=== PATIENT | male | born 1940 | race Caucasian/White ===

== ENCOUNTER 2022-03-22 20:02 | Inpatient (IN) | payer MEDICARE, OTHER ==
[~2022-03-22] VITALS: Ht 165.1 cm; Wt 72.6 kg
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
--- NOTE | 2022-03-22 20:25 | NUR ---
Pinky at bedside for crisis evaluation.
--- NOTE | 2022-03-22 20:30 | NUR ---
Patient is medically cleared for MHU admission.
--- NOTE | 2022-03-22 20:30 | NUR ---
Sitter Divia at bedside.
--- NOTE | 2022-03-22 20:45 | NUR ---
Called U for bed assignment Room 141B.
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
[2022-03-22] MEDS ORDERED: PRAV40TA3 PO (22:09)
[2022-03-22] MEDS ORDERED: TAMS-3 PO (22:09)
[2022-03-22] MEDS ORDERED: DIVA-78 PO (22:09)
[2022-03-22] MEDS ORDERED: CYAN100T44 PO (22:09)
[2022-03-22] MEDS ORDERED: METF-440 PO (22:09)
[2022-03-22] MEDS ORDERED: OLAN5TAB70 PO (22:09)
[2022-03-22] MEDS ORDERED: MELA3TAB41 PO (22:09)
[2022-03-22] MEDS ORDERED: AMLO10TA59 PO (22:09)
--- NOTE | 2022-03-22 22:15 | NUR ---
Report given to RAHEEM Iglesias.
--- NOTE | 2022-03-22 22:45 | NUR ---
Transported from ED to MHU Room 141B via wheelchair, without any incident, accompanied by 2 staff members.
[2022-03-22 23:15] VITALS: BP 136/92
[2022-03-22] MEDS ORDERED: BLOOD SUGAR DIAGNOSTIC 1 EACH STRIP VI ONE (23:15)
[2022-03-22] MEDS ORDERED: LORAZEPAM 1 MG TABLET PO PRN (23:15)
[2022-03-22] MEDS ORDERED: MAG HYDROX/AL HYDROX/SIMETH 30 ML LIQUID UDC PO PRN (23:15)
[2022-03-22] MEDS: TEMAZEPAM 7.5 MG CAPSULE PO PRN (23:15)
[2022-03-22] MEDS ORDERED: ACETAMINOPHEN 325 MG TABLET PO PRN (23:15)
[2022-03-22] MEDS ORDERED: MAGNESIUM HYDROXIDE 30 ML LIQUID UDC PO PRN (23:15)
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
[2022-03-23 07:30] VITALS: BP 119/71
[2022-03-23 07:31] LABS: ALANINE AMINOTRANSFERASE 35 U/L (16-63); ALKALINE PHOSPHATASE 102 U/L (50-136); ASPARTATE AMINOTRANSFERASE 44 U/L (15-37); BILIRUBIN,TOTAL 0.9 mg/dL (0.2-1.0); CARBON DIOXIDE 31 mmol/L (21-32); CHLORIDE 105 mmol/L (98-107); CREATININE 1.6 mg/dL (0.6-1.3); GLUCOSE 118 mg/dL (74-106); POTASSIUM 3.8 mmol/L (3.5-5.1); TOTAL PROTEIN, SERUM 7.3 g/dL (6.4-8.2); UREA NITROGEN, BLOOD 24 mg/dL (7-18)
[2022-03-23] MEDS ORDERED: HOME MED MISCELLANEOUS XX SCH (11:15)
[2022-03-23] MEDS: OLANZAPINE 2.5 MG TABLET PO SCH ×2 (12:40→16:56)
[2022-03-23] MEDS: DIVALPROEX 500 MG TABLET.DR PO SCH ×2 (12:42→20:21)
[2022-03-23 16:00] VITALS: BP 92/58
[2022-03-23] MEDS: METFORMIN HCL 500 MG TABLET PO SCH (18:23)
--- NOTE | 2022-03-23 18:35 | NUR ---
GPS: RECEIVED PT ON BED. ASLEEP THE WHOLE MORNING. SEEN BY PSYCHIATRIST TODAY, FLAT AFFECT, WITHDRAWN AND DEPRESSED, STAYING IN THE ROOM, ENCOURAGED TO ATTEND WITH GROUP THERAPY WITH MINIMUM PARTICIPATION NOTED. COMPLIANT WITH CARE AND MEDS WITH NO AGITATION NOTED. PT ALERT AND ORIENTED X 1-2. PT AMBULATORY WITH MINIMUM ASSIST FOR UNSTEADINESS. SEEN BY PHYSICAL THERAPY AND PNEUMATIC SYSTEM CONVEYOR OPERATOR TODAY.
[2022-03-23 20:06] VITALS: BP 101/70
[2022-03-23] MEDS: ATORVASTATIN 10 MG TABLET PO SCH (20:22)
[2022-03-23] MEDS: TAMSULOSIN HCL 0.4 MG CAP.SR.24H PO SCH (20:22)
[2022-03-23] MEDS ORDERED: IV NS 1000 ML 1,000 ML IV ONE (21:00)
--- NOTE | 2022-03-24 01:50 | NUR ---
Received patient in bed sleeping. This casualty underwriter got patient up to Jacki chair. Inserted # 22 gauge in left hand. IVF x 1 bag infusing without difficulty. Monitoring patients Intake and output . Safety Stratiges are in place and no behavioral issues noted at this time.
--- NOTE | 2022-03-24 06:08 | NUR ---
Patient tolerated 500 ml of IVF, the became slightly congested. The patient voided post IV and specimen sent to the lab. Review Appraiser assisted patient back to be per the patients request. Urine output 300ml post IVF and dark in color. Safety Stratiges are in place and the total sleep hours are 8.00 . No behavior issues noted but the patient is forgetful and requires assistance with all ADLS, toileting and ambulation . Continuing to monitor frequently and reoriented as needed.
[2022-03-24 06:18] LABS: *BILIRUBIN,URIN NEGATIVE (NEGATIVE); *COLOR,URINE YELLOW (YELLOW); *KETONES,URINE TRACE (NEGATIVE); *UROBILINOGEN,URINE 0.2 E.U./dl (NORMAL); LEUKOCYTE ESTERASE ,URINE NEGATIVE (NEGATIVE); NITRITE, URINE NEGATIVE (NEGATIVE); UGLUCOSE TRACE (NEGATIVE)
[2022-03-24 06:39] LABS: *BLOOD, URINE TRACE (NEGATIVE); *CLARITY,URINE CLEAR (CLEAR); *CREATININE,URINE 200.8 mg/dL (30-125); BACTERIA,URINE NONE SEEN /HPF (NONE SEEN); SQUAMOUS EPITHELIAL CELL,UR FEW /HPF (NONE SEEN); WBC,URINE 0-3 /HPF (0-3)
[2022-03-24 07:00] VITALS: BP 140/93
[2022-03-24] MEDS: DIVALPROEX 500 MG TABLET.DR PO SCH ×2 (09:01→20:20)
[2022-03-24] MEDS: OLANZAPINE 2.5 MG TABLET PO SCH ×3 (09:02→17:26)
[2022-03-24] MEDS: METFORMIN HCL 500 MG TABLET PO SCH ×2 (09:02→17:26)
[2022-03-24] MEDS: AMLODIPINE 10 MG TABLET PO SCH (09:02)
[2022-03-24] MEDS: CYANOCOBALAMIN 100 MCG TABLET PO SCH (09:02)
--- NOTE | 2022-03-24 11:22 | NUR ---
NELDA Family Contact: Pt's , Tony [phone] contacted this SW and discussed pt's treatment and discharge plan. Tony stated she herself is in a nusring home and wants to ensure that her is placed in a nursing facility upon discharge. Tony stated the pt lives with his sister, Camila ([phone]) and she cannot take care of him. Tony stated pt needs a facility moving forward. Tony was agreeable to NELDA stating that this senior copywriter can speak to the pt's psychiatrist and refer the pt to [facility] [place]) facilities that are appropriate for the pt's needs for continuation of care. Tony is aware and agreeable. Tony stated to please keep her informed on all updates. Per Tony, pt does not have a DPOA or conservator.
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
--- NOTE | 2022-03-24 14:04 | NUR ---
NELDA Initial Discharge Note: Pt currently resides with his sister, Sonal ([phone]) at home located at [address] [place] [address]. Per pt's , Tony ([phone]), Tony stated she would like her to discharge to a prison and not to return home with his sister. Tony stated she is agreeable to this SW helping to find a safe placement for the pt in a prison upon discharge. NELDA will continue to work with pt, family and MD to ensure a safe and proper discharge plan.
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
[2022-03-24 16:00] VITALS: BP 136/88
--- NOTE | 2022-03-24 19:04 | NUR ---
GPS: PT STAYED IN THE ROOM THE WHOLE DAY, WITHDRAWN AND REFUSED PARTICIPATING WITH GROUP THERAPY. COMPLIANT WITH MEDS. PT ABLE TO AMBULATE FOR TOILETING. DENIES ANY SUICIDAL IDEATION. PT DENIES PAIN OR DISCOMFORT. NUT GRINDER CAME TO CUT TOENAILS. NOTED WITH RIGHT ARM HEPLOCK NOTED COVERED WITH DRESSING.
[2022-03-24 20:00] VITALS: BP 135/81
[2022-03-24] MEDS: ATORVASTATIN 10 MG TABLET PO SCH (20:20)
[2022-03-24] MEDS: TAMSULOSIN HCL 0.4 MG CAP.SR.24H PO SCH (20:20)
--- NOTE | 2022-03-25 06:02 | NUR ---
Received patient in bed at the start of the shift. This typewriter ribbon winder got patient up, gave him a shower and snack. Patient is easy to direct and shows no resistance. Assist needed with all ADLS. Safety Stratiges in place. The patient remains oriented to name and being in the hospital. Verbalizes wanting to go home.
[2022-03-25 07:56] VITALS: BP 123/69
[2022-03-25] MEDS: OLANZAPINE 2.5 MG TABLET PO SCH ×3 (09:06→16:34)
[2022-03-25] MEDS: CYANOCOBALAMIN 100 MCG TABLET PO SCH (09:06)
[2022-03-25] MEDS: DIVALPROEX 500 MG TABLET.DR PO SCH ×2 (09:06→20:17)
[2022-03-25] MEDS: AMLODIPINE 10 MG TABLET PO SCH (09:06)
[2022-03-25] MEDS: METFORMIN HCL 500 MG TABLET PO SCH ×2 (09:06→18:03)
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
[2022-03-25 16:28] VITALS: BP 96/58
--- NOTE | 2022-03-25 17:20 | NUR ---
GPS: PT STAYED N THE ROOM THE WHOLE TIME. ABLE TO AMBULATE GOING TO THE BATHROOM. COMPLIANT WITH CARE AND MEDICATIONS. DENIES ANY PAIN OR DISCOMFORT. RECEIVED FAMILY CALLS. PT ENCOURAGED MORE TO ENGAGE WITH GROUP THERAPY BUT REFUSED. WILL KEEP ON ENCOURAGING PT NEXT TIME. NO AGITATION NOTED. DENIES SI/HI NOTED.
[2022-03-25] MEDS: TAMSULOSIN HCL 0.4 MG CAP.SR.24H PO SCH (20:17)
[2022-03-25] MEDS: ATORVASTATIN 10 MG TABLET PO SCH (20:17)
[2022-03-25 20:52] VITALS: BP 103/65
[2022-03-26 07:54] VITALS: BP 114/78
[2022-03-26] MEDS: OLANZAPINE 2.5 MG TABLET PO SCH ×3 (08:26→16:12)
[2022-03-26] MEDS: DIVALPROEX 500 MG TABLET.DR PO SCH ×2 (08:26→21:15)
[2022-03-26] MEDS: CYANOCOBALAMIN 100 MCG TABLET PO SCH (08:26)
[2022-03-26] MEDS: METFORMIN HCL 500 MG TABLET PO SCH ×2 (08:26→17:03)
[2022-03-26] MEDS: AMLODIPINE 10 MG TABLET PO SCH (08:28)
[2022-03-26 16:07] VITALS: BP 98/56
--- NOTE | 2022-03-26 18:00 | NUR ---
GPS: Nursing Notes: Thought Disorder: Patient is awake and responding to his name, ambulatory with fww, needs a lot of prompting to participate in therapeutic groups, isolative and withdrawn in his room, no interactions with peers, flat affect, low energy level, unable to formulate a viable plan for self care, unkempt appearance, continue to monitor for safety, continue with treatment plan.
[2022-03-26] MEDS: TAMSULOSIN HCL 0.4 MG CAP.SR.24H PO SCH (21:15)
[2022-03-26] MEDS: ATORVASTATIN 10 MG TABLET PO SCH (21:15)
[2022-03-26] MEDS: TEMAZEPAM 7.5 MG CAPSULE PO PRN (21:15)
[2022-03-27 07:30] VITALS: BP 107/63
[2022-03-27 07:32] LABS: HEMATOCRIT 39.8 % (36.7-47.1); MEAN CORPUSCULAR HEMOGLOBIN 28.1 uug (23.8-33.4); MEAN CORPUSCULAR VOLUME 84.5 fL (73.0-96.2); PLATELET COUNT (AUTO) 177 K/uL (152-348)
[2022-03-27 07:59] LABS: CARBON DIOXIDE 30 mmol/L (21-32); CHLORIDE 107 mmol/L (98-107); CREATININE 1.4 mg/dL (0.6-1.3); GLUCOSE 90 mg/dL (74-106); UREA NITROGEN, BLOOD 29 mg/dL (7-18)
[2022-03-27] MEDS: METFORMIN HCL 500 MG TABLET PO SCH ×2 (08:35→17:02)
[2022-03-27] MEDS: DIVALPROEX 500 MG TABLET.DR PO SCH ×2 (08:36→20:56)
[2022-03-27] MEDS: AMLODIPINE 10 MG TABLET PO SCH (08:36)
[2022-03-27] MEDS: OLANZAPINE 2.5 MG TABLET PO SCH ×3 (08:36→16:43)
[2022-03-27] MEDS: CYANOCOBALAMIN 100 MCG TABLET PO SCH (08:40)
--- NOTE | 2022-03-27 14:51 | NUR ---
GPS: Nursing Notes: Thought Disorder: Patient is awake and responding to his name, isolative and withdrawn in his room, needs a lot of prompting to participate in therapeutic groups, interactive when engage with staff, redirected and reoriented during shift, unable to formulate a viable plan for self care, continue to monitor for safety, A/Ox2, forgetful at times, constantly reminded to use his fww, but he forgets to use his fww, continue with treatment plan.
[2022-03-27 15:20] VITALS: BP 97/62
[2022-03-27 20:19] VITALS: BP 111/64
[2022-03-27] MEDS: TAMSULOSIN HCL 0.4 MG CAP.SR.24H PO SCH (20:56)
[2022-03-27] MEDS: ATORVASTATIN 10 MG TABLET PO SCH (20:56)
[2022-03-27] MEDS: TEMAZEPAM 7.5 MG CAPSULE PO PRN (20:56)
[2022-03-28 08:02] VITALS: BP 104/62
[2022-03-28] MEDS: METFORMIN HCL 500 MG TABLET PO SCH ×2 (08:48→17:05)
[2022-03-28] MEDS: AMLODIPINE 10 MG TABLET PO SCH (08:48)
[2022-03-28] MEDS: DIVALPROEX 500 MG TABLET.DR PO SCH ×2 (08:48→20:38)
[2022-03-28] MEDS: OLANZAPINE 2.5 MG TABLET PO SCH ×3 (08:49→17:03)
[2022-03-28] MEDS: CYANOCOBALAMIN 100 MCG TABLET PO SCH (08:49)
--- NOTE | 2022-03-28 13:35 | NUR ---
GPS: Nursing Notes: Thought Disorder: Patient is awake and responding to his name, isolative and withdrawn in his room, no interactions with peers or staff, needs prompting to participate in therapeutic groups, A/Ox2, low energy level, ambulatory with fww, unable to formulate a viable plan for self care, continue to monitor for safety, continue with treatment plan.
[2022-03-28 15:59] VITALS: BP 118/57
[2022-03-28] MEDS: ATORVASTATIN 10 MG TABLET PO SCH (20:38)
[2022-03-28] MEDS: TAMSULOSIN HCL 0.4 MG CAP.SR.24H PO SCH (20:38)
[2022-03-28 22:04] VITALS: BP 118/64
--- NOTE | 2022-03-29 05:43 | NUR ---
Received patient in the room. Disheveled, with food all over the floor and wet pants. The patient was confused. This securities underwriter assisted patient to the bathroom. Gait unsteady. VS have been stable and the patient is medication compliant, calm and withdrawn. The patient seems depressed and has minimal interaction with staff of peers. No behavioral issues noted. Safety Stratiges are in place. Sleep hours are 8.15.
[2022-03-29 07:30] VITALS: BP 114/66
[2022-03-29] MEDS: OLANZAPINE 2.5 MG TABLET PO SCH ×3 (08:36→17:02)
[2022-03-29] MEDS: DIVALPROEX 500 MG TABLET.DR PO SCH ×2 (08:37→21:22)
[2022-03-29] MEDS: AMLODIPINE 10 MG TABLET PO SCH (08:37)
[2022-03-29] MEDS: CYANOCOBALAMIN 100 MCG TABLET PO SCH (08:37)
[2022-03-29] MEDS: METFORMIN HCL 500 MG TABLET PO SCH ×2 (08:37→17:02)
--- NOTE | 2022-03-29 11:50 | NUR ---
GPS: Nursing Notes: Thought Disorder: Patient is awake and responding to his name, disorganized, disoriented, isolative and withdrawn in his room, no interactions with peers, continue to monitor for safety, needs prompting to participate in therapeutic groups, ambulatory with fww, forgetful, unable to formulate a viable plan for self care, continue with treatment plan.
[2022-03-29 15:19] VITALS: BP 111/59
[2022-03-29 20:09] VITALS: BP 116/64
--- NOTE | 2022-03-29 20:30 | NUR ---
RECEIVED PATIENT IN HIS ROOM IN BED. HE IS NOTED AWAKE A/O X 1 TO 2. HE IS NOTED FORGETFUL. HE IS A POOR HISTORIAN. HE IS NOTED LESS WITHDRAWN LESS ISOLATIVE HE WAS ABLE TO HAVE HIS SNACKS AT THE DAYROOM. HIS MOOD IS LOW, HIS AFFECT IS BLUNTED. HE REQUIRES SOME ASSISTANCE WITH ADLs. HE IS REASSURED FOR HIS SAFETY. SAFETY AND FALL PRECAUTIONS ARE IN PLACE. PATIENT'S V/S ARE STABLE, HE IS IN NO DISTRESS. HE WAS GIVEN PO FLUIDS AND SNACKS. WILL CONTINUE TO MONITOR.
[2022-03-29] MEDS: TAMSULOSIN HCL 0.4 MG CAP.SR.24H PO SCH (21:22)
[2022-03-29] MEDS: ATORVASTATIN 10 MG TABLET PO SCH (21:22)
[2022-03-30 07:30] VITALS: BP 143/76
[2022-03-30] MEDS: METFORMIN HCL 500 MG TABLET PO SCH ×2 (08:48→17:52)
[2022-03-30] MEDS: AMLODIPINE 10 MG TABLET PO SCH (08:48)
[2022-03-30] MEDS: OLANZAPINE 2.5 MG TABLET PO SCH ×3 (08:49→17:53)
[2022-03-30] MEDS: DIVALPROEX 500 MG TABLET.DR PO SCH ×2 (08:49→20:30)
[2022-03-30] MEDS: CYANOCOBALAMIN 100 MCG TABLET PO SCH (08:50)
[2022-03-30 16:00] VITALS: BP 133/76
--- NOTE | 2022-03-30 18:44 | NUR ---
GPS: RECEIVED PT ON BED TODAY. COMPLIANT WITH CARE AND MEDS. PT SEEN AMBULATING WITH WALKER ALONG THE HALLWAY AND PARTICIPATED WITH GROUP THERAPY FOR A WHILE. PT STILL STAYS IN THE ROOM, SLEEPING, LIKE LOW ENERGY, BUT EASILY GET AROUSED WHEN CALLED BY NAME. ALERT/ ORIENTED X2. NO AGITATION NOTED AT THIS TIME.
[2022-03-30 20:11] VITALS: BP 112/83
[2022-03-30] MEDS: ATORVASTATIN 10 MG TABLET PO SCH (20:30)
[2022-03-30] MEDS: TAMSULOSIN HCL 0.4 MG CAP.SR.24H PO SCH (20:31)
--- NOTE | 2022-03-30 21:14 | NUR ---
RECEIVED PATIENT WALKING IN THE HALLWAY WITH THE AID OF A FRONT WHEEL WALKER. HE IS NOTED A/O X 1 TO 2. CALM AND PLEASANT UPON APPROACHED. HE IS A POOR HISTORIAN, BUT HE IS NOTED LESS WITHDRAWN LESS ISOLATIVE HE WAS ABLE TO PARTICIPATE IN HIS TIME FOR SNACKS AT THE DAYROOM. HIS MOOD IS LOW, HIS AFFECT IS BLUNTED. HE REQUIRES SOME ASSISTANCE WITH ADLs. AND BATHROOM. HE IS REASSURED FOR HIS SAFETY. SAFETY AND FALL PRECAUTIONS ARE IN PLACE. BED ALARM ON WITH FREQUENT HEAD CHECKS. PATIENT'S V/S ARE STABLE, HE IS IN NO DISTRESS. HE WAS GIVEN PO FLUIDS AND SNACKS. WILL CONTINUE TO MONITOR.
[2022-03-31 07:30] VITALS: BP 114/67
--- NOTE | 2022-03-31 09:00 | NUR ---
Calm and compliant with care and taking of medications. Ambulatory with FWW
[2022-03-31] MEDS: AMLODIPINE 10 MG TABLET PO SCH (09:23)
[2022-03-31] MEDS: CYANOCOBALAMIN 100 MCG TABLET PO SCH (09:23)
[2022-03-31] MEDS: DIVALPROEX 500 MG TABLET.DR PO SCH ×2 (09:23→20:53)
[2022-03-31] MEDS: OLANZAPINE 2.5 MG TABLET PO SCH ×3 (09:23→16:39)
[2022-03-31] MEDS: METFORMIN HCL 500 MG TABLET PO SCH ×2 (09:24→17:28)
[2022-03-31 17:15] VITALS: BP 108/65
--- NOTE | 2022-03-31 17:24 | NUR ---
Resting most of the afternoon between care. Responds to interaction. Complaint with taking of medication
--- NOTE | 2022-03-31 20:30 | NUR ---
RECEIVED PATIENT IN HIS ROOM IN BED. HE IS NOTED AWAKE A/O X1 AND 2. CALM AND PLEASANT UPON APPROACHED. HE IS FORGETFUL AT TIMES. PATIENT IS LESS ISOLATIVE AND LESS WITHDRAWN. HE IS ABLE TO MAKE EYE CONTACT WITH THIS FOOT WORKER AND HAVE SOME MEANINGFUL CONVERSATIONS. HE IS REASSURED FOR HIS SAFETY. SAFETY AND FALL PRECAUTION ARE IN PLACE. HIS V/S ARE STABLE. PATIENT IN NO DISTRESS. HE WAS GIVEN PO FLUIDS AND SNACKS. HE ALSO SHOWERED. WILL CONTINUE TO MONITOR,
[2022-03-31] MEDS: ATORVASTATIN 10 MG TABLET PO SCH (20:53)
[2022-03-31] MEDS: TAMSULOSIN HCL 0.4 MG CAP.SR.24H PO SCH (20:53)
[2022-03-31 21:07] VITALS: BP 107/63
[2022-04-01 07:30] VITALS: BP 115/82
[2022-04-01] MEDS: OLANZAPINE 2.5 MG TABLET PO SCH ×3 (08:41→17:45)
[2022-04-01] MEDS: DIVALPROEX 500 MG TABLET.DR PO SCH ×2 (08:41→20:27)
[2022-04-01] MEDS: AMLODIPINE 10 MG TABLET PO SCH (08:42)
[2022-04-01] MEDS: METFORMIN HCL 500 MG TABLET PO SCH ×2 (08:42→17:45)
[2022-04-01] MEDS: CYANOCOBALAMIN 100 MCG TABLET PO SCH (09:03)
--- NOTE | 2022-04-01 15:35 | NUR ---
SNF Referral: SW faxed patient's referral packet including: History and Physical, Consultation, Progress Notes, Medication List and Labs to the following facilities for review and possible assisted placement: [address] [address] ([phone]) F: [phone]).
[2022-04-01 16:00] VITALS: BP 118/79
--- NOTE | 2022-04-01 16:07 | NUR ---
SW Discharge Update: Lucía from [facility] [address] [facility] [address] ([phone]) F: [phone] contacted this SW and stated that pt is accepted to their facility upon discharge.
[2022-04-01 20:26] VITALS: BP 113/59
[2022-04-01] MEDS: ATORVASTATIN 10 MG TABLET PO SCH (20:27)
[2022-04-01] MEDS: TAMSULOSIN HCL 0.4 MG CAP.SR.24H PO SCH (20:27)
[2022-04-01] MEDS: TEMAZEPAM 7.5 MG CAPSULE PO PRN (23:12)
[2022-04-02 07:30] VITALS: BP 127/78
[2022-04-02] MEDS: AMLODIPINE 10 MG TABLET PO SCH (08:36)
[2022-04-02] MEDS: DIVALPROEX 500 MG TABLET.DR PO SCH ×2 (08:36→20:31)
[2022-04-02] MEDS: METFORMIN HCL 500 MG TABLET PO SCH ×2 (08:36→17:58)
[2022-04-02] MEDS: CYANOCOBALAMIN 100 MCG TABLET PO SCH (08:47)
[2022-04-02] MEDS: OLANZAPINE 2.5 MG TABLET PO SCH ×3 (08:47→17:58)
--- NOTE | 2022-04-02 11:10 | NUR ---
GPS: PT RECEIVED AMBULATING WITH THE WALKER, COMPLIANT WITH CARE AND MEDS. PT ABLE TO MAKE NEEDS KNOWN SOMETIMES. PARTICIPATED MORE WITH GROUP THERAPY AND NOW HAVING A BETTER DAYS, MORE EPISODE OF GOING OUT FROM HIS ROOM. WITH A BIT OF CONFUSION, PT EASILY REDIRECTABLE
[2022-04-02 16:00] VITALS: BP 111/68
[2022-04-02 20:00] VITALS: BP 107/66
[2022-04-02] MEDS: ATORVASTATIN 10 MG TABLET PO SCH (20:32)
[2022-04-02] MEDS: TAMSULOSIN HCL 0.4 MG CAP.SR.24H PO SCH (20:32)
[2022-04-03 08:08] VITALS: BP 100/56
[2022-04-03] MEDS: METFORMIN HCL 500 MG TABLET PO SCH ×2 (08:52→17:42)
[2022-04-03] MEDS: DIVALPROEX 500 MG TABLET.DR PO SCH ×2 (08:52→20:35)
[2022-04-03] MEDS: AMLODIPINE 10 MG TABLET PO SCH (08:52)
[2022-04-03] MEDS: CYANOCOBALAMIN 100 MCG TABLET PO SCH (08:52)
[2022-04-03] MEDS: OLANZAPINE 2.5 MG TABLET PO SCH ×3 (08:52→17:42)
--- NOTE | 2022-04-03 15:52 | NUR ---
GPS:Nursing note: Pt is alert, cooperative with care. Pt is ambulatory with front wheel walker but isolates himself in room and sleeps most of the day. Will continue to monitor.
[2022-04-03 16:13] VITALS: BP 109/50
[2022-04-03 19:56] VITALS: BP 106/54
--- NOTE | 2022-04-03 20:30 | NUR ---
RECEIVED PATIENT IN HIS ROOM IN BED. HE IS NOTED AWAKE A/O X1 AND 2. PATIENT IS ISOLATIVE AND WITHDRAWN. HE IS ABLE TO MAKE EYE CONTACT WITH THIS CNC OPERATOR MACHINIST AND HAVE SOME MEANINGFUL CONVERSATIONS. HE IS REASSURED FOR HIS SAFETY. SAFETY AND FALL PRECAUTION ARE IN PLACE. HIS V/S ARE STABLE. PATIENT IN NO DISTRESS. HE WAS GIVEN PO FLUIDS AND SNACKS. HE ALSO SHOWERED. WILL CONTINUE TO MONITOR,
[2022-04-03] MEDS: TAMSULOSIN HCL 0.4 MG CAP.SR.24H PO SCH (20:35)
[2022-04-03] MEDS: ATORVASTATIN 10 MG TABLET PO SCH (20:35)
[2022-04-04] MEDS: OLANZAPINE 2.5 MG TABLET PO SCH ×2 (08:34→20:17)
[2022-04-04] MEDS: METFORMIN HCL 500 MG TABLET PO SCH ×2 (08:34→17:11)
[2022-04-04] MEDS: DIVALPROEX 500 MG TABLET.DR PO SCH ×2 (08:35→20:17)
[2022-04-04] MEDS: AMLODIPINE 10 MG TABLET PO SCH (08:35)
[2022-04-04] MEDS: CYANOCOBALAMIN 100 MCG TABLET PO SCH (08:35)
[2022-04-04 10:09] VITALS: BP 116/64
--- NOTE | 2022-04-04 14:37 | NUR ---
GPS: Nursing Notes: Thought Disorder: Patient is awake and responding to his name, cooperative with nursing care, compliant with his medications, need minimal prompting to participate in therapeutic groups, A/Ox2, ambulatory with fww, unable to formulate a viable plan for self care, low energy level, interactive during group therapy, needs assistance with ADL's, denies SI/HI, continue to monitor for safety, continue with treatment plan.
[2022-04-04 16:18] VITALS: BP 105/59
[2022-04-04 19:57] VITALS: BP 119/73
[2022-04-04] MEDS: TAMSULOSIN HCL 0.4 MG CAP.SR.24H PO SCH (20:16)
[2022-04-04] MEDS: ATORVASTATIN 10 MG TABLET PO SCH (20:17)
--- NOTE | 2022-04-05 03:57 | NUR ---
GPS: Received patient in bed, responsive to name and touch. Patient isolative in his room, sleeping most of the time. Remains compliant with medications. Offered snacks and fluid but refused. Patient forgetful, however pleasant and no behavioral problem noted.
[2022-04-05 06:50] LABS: HEMATOCRIT 40.6 % (36.7-47.1); MEAN CORPUSCULAR HEMOGLOBIN 28.7 uug (23.8-33.4); PLATELET COUNT (AUTO) 140 K/uL (152-348)
[2022-04-05 07:24] LABS: CARBON DIOXIDE 34 mmol/L (21-32); CHLORIDE 105 mmol/L (98-107); CREATININE 1.7 mg/dL (0.6-1.3); GLUCOSE 84 mg/dL (74-106); MAGNESIUM 1.6 mg/dL (1.8-2.4); PHOSPHOROUS 3.2 mg/dL (2.5-4.9); POTASSIUM 4.1 mmol/L (3.5-5.1); UREA NITROGEN, BLOOD 40 mg/dL (7-18)
[2022-04-05 07:30] VITALS: BP 123/61
[2022-04-05] MEDS: METFORMIN HCL 500 MG TABLET PO SCH ×2 (08:33→17:12)
[2022-04-05] MEDS: DIVALPROEX 500 MG TABLET.DR PO SCH ×2 (08:33→20:13)
[2022-04-05] MEDS: CYANOCOBALAMIN 100 MCG TABLET PO SCH (08:33)
[2022-04-05] MEDS: OLANZAPINE 2.5 MG TABLET PO SCH (08:33)
[2022-04-05] MEDS: AMLODIPINE 10 MG TABLET PO SCH (08:34)
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
[2022-04-05] MEDS ORDERED: MAGNESIUM OXIDE 400 MG TABLET PO ONE (10:00)
--- NOTE | 2022-04-05 12:14 | NUR ---
GPS: Nursing Notes: Thought Disorder: Patient is awake and responding to his name, cooperative with nursing care, isolative and withdrawn at times, but following staff directions, need minimal prompting to participate in therapeutic groups, forgetful, A/Ox2, ambulatory with fww, continue to monitor for safety, unable to formulate a viable plan for self care, continue with treatment plan.
[2022-04-05 15:27] VITALS: BP 117/68
[2022-04-05 20:00] VITALS: BP 126/64
[2022-04-05] MEDS: ATORVASTATIN 10 MG TABLET PO SCH (20:13)
[2022-04-05] MEDS: TAMSULOSIN HCL 0.4 MG CAP.SR.24H PO SCH (20:13)
[2022-04-06 07:30] VITALS: BP 104/64
[2022-04-06] MEDS: CYANOCOBALAMIN 100 MCG TABLET PO SCH (08:17)
[2022-04-06] MEDS: DIVALPROEX 500 MG TABLET.DR PO SCH ×2 (08:17→20:24)
[2022-04-06] MEDS: METFORMIN HCL 500 MG TABLET PO SCH ×2 (08:17→18:24)
[2022-04-06] MEDS: AMLODIPINE 10 MG TABLET PO SCH (08:18)
[2022-04-06 16:00] VITALS: BP 106/62
--- NOTE | 2022-04-06 16:53 | NUR ---
Received patient awake in the activity room. Pt. quiet, withdrawn, cooperative, depressed, withdrawn, compliant with medications. Patient is encourage to vent feelings and emotions. Ambulates independently. Fall and safety precautions implemented.
[2022-04-06 20:19] VITALS: BP 111/60
[2022-04-06] MEDS: ATORVASTATIN 10 MG TABLET PO SCH (20:24)
[2022-04-06] MEDS: TAMSULOSIN HCL 0.4 MG CAP.SR.24H PO SCH (20:25)
[2022-04-06] MEDS ORDERED: OLANZAPINE 2.5 MG TABLET PO SCH (21:00)
[2022-04-07 06:49] LABS: HEMATOCRIT 41.7 % (36.7-47.1); MEAN CORPUSCULAR HEMOGLOBIN 28.2 uug (23.8-33.4); MEAN CORPUSCULAR VOLUME 85.5 fL (73.0-96.2); PLATELET COUNT (AUTO) 132 K/uL (152-348)
[2022-04-07 07:05] LABS: ALANINE AMINOTRANSFERASE 16 U/L (16-63); ALKALINE PHOSPHATASE 67 U/L (50-136); ASPARTATE AMINOTRANSFERASE 12 U/L (15-37); BILIRUBIN,TOTAL 0.4 mg/dL (0.2-1.0); CARBON DIOXIDE 32 mmol/L (21-32); CHLORIDE 104 mmol/L (98-107); CREATININE 1.4 mg/dL (0.6-1.3); GLUCOSE 74 mg/dL (74-106); POTASSIUM 4.4 mmol/L (3.5-5.1); TOTAL PROTEIN, SERUM 7.1 g/dL (6.4-8.2); UREA NITROGEN, BLOOD 29 mg/dL (7-18)
[2022-04-07 07:30] VITALS: BP 118/71
[2022-04-07] MEDS: DIVALPROEX 500 MG TABLET.DR PO SCH (08:43)
[2022-04-07] MEDS: METFORMIN HCL 500 MG TABLET PO SCH (08:43)
[2022-04-07 08:44] VITALS: BP 118/71
[2022-04-07] MEDS: AMLODIPINE 10 MG TABLET PO SCH (08:44)
[2022-04-07] MEDS: CYANOCOBALAMIN 100 MCG TABLET PO SCH (08:47)
--- NOTE | 2022-04-07 09:47 | NUR ---
NELDA Discharge Note: Pt will be discharged to [facility] [address] [place] [address] ([phone]) via Ambulance transportation at 1PM. NELDA spoke with admin coordinator, Lucía at the facility who states they are ready to accept the patient today. Pt is aware and agreeable with discharge plans. Pts sister, Camila ([phone]) is aware and agreeable with the discharge plans. NELDA contacted and left a detailed voicemail for a call back for pts , Argelia ([phone]) regarding pts discharge details. Pt is alert and oriented x2, is unable to plan for self-care at this time; however, is willing to accept care at SNF. Pt denies any suicidal or homicidal ideation. Pt will follow-up at the facility with Psychiatrist, Dr. Lei and Cuprous Chloride Operator, Alley. Pt presents with calm mood and congruent affect. PHARMACY: [facility]: [phone]) [address], [address], [place] [address].
--- NOTE | 2022-04-07 11:25 | NUR ---
NELDA Family Contact: SW contacted pts , Argelia ([phone]) regarding pts discharge details to [address] [address] ([phone]). Pt's is aware and agreeable.
[2022-04-07 13:21] LABS: VALPROIC ACID 82 ug/mL (50-100)
--- NOTE | 2022-04-07 14:26 | NUR ---
Discharged patient to [facility] via Ambulance transportation at 2PM. . Pt is alert and oriented x2, is unable to plan for self-care Pt denies any suicidal or homicidal ideation. Pt will follow-up at the facility with Psychiatrist, Dr. Lei and Grounds Maintenance Worker, Alley. patient vital sign stable, all personal belonging taken by patient, report given to Brianna MACIEL.
== END 2022-04-07 14:20 | DRG 885 ==
LOC: ER 20:19 → GPS 22:28
PROVIDERS: ADMIT Psychiatry & Neurology Psychosomatic Medicine; ATTEND Nurse Practitioner Acute Care
PROC: 0HBRXZZ Excision of Toe Nail, External Approach (ICD-10-PCS; principal; 2022-03-24)
DX: F25.0 Schizoaffective disorder, bipolar type (principal); N17.0 Acute kidney failure with tubular necrosis; N18.9 Chronic kidney disease, unspecified; E11.40 Type 2 diabetes mellitus with diabetic neuropathy, unspecified; M20.41 Other hammer toe(s) (acquired), right foot; M20.42 Other hammer toe(s) (acquired), left foot; N40.0 Benign prostatic hyperplasia without lower urinary tract symptoms; I12.9 Hypertensive chronic kidney disease with stage 1 through stage 4 chronic kidney disease, or unspecified chronic kidney disease; E78.5 Hyperlipidemia, unspecified; R41.9 Unspecified symptoms and signs involving cognitive functions and awareness; F29 Unspecified psychosis not due to a substance or known physiological condition; Z73.6 Limitation of activities due to disability; M79.672 Pain in left foot; M79.671 Pain in right foot; L60.3 Nail dystrophy; F41.9 Anxiety disorder, unspecified; F43.10 Post-traumatic stress disorder, unspecified; Z20.822 Contact with and (suspected) exposure to COVID-19; Z79.84 Long term (current) use of oral hypoglycemic drugs; E11.22 Type 2 diabetes mellitus with diabetic chronic kidney disease
CPT/HCPCS: 36415; 71045; 76770; 80164; 83735; 84100; 84300; 85025; 87086; 97161; A4663; J7040

== ENCOUNTER 2023-04-21 13:15 | Emergency (ER) | payer MEDICARE, OTHER ==
[~2023-04-21] VITALS: Ht 165.1 cm; Wt 72.6 kg
[~2023-04-21 13:15] MED LIST: AMLO10TA59 PO; CYAN100T44 PO; METF-440 PO; PRAV40TA3 PO; TAMS-3 PO
[2023-04-21 15:23] LABS: *BILIRUBIN,URIN NEGATIVE (NEGATIVE); *BLOOD, URINE NEGATIVE (NEGATIVE); *CLARITY,URINE CLEAR (CLEAR); *COLOR,URINE YELLOW (YELLOW); *KETONES,URINE NEGATIVE (NEGATIVE); *PROTEIN,URINE NEGATIVE (NEGATIVE); *UROBILINOGEN,URINE 0.2 E.U./dl (NORMAL); LEUKOCYTE ESTERASE ,URINE NEGATIVE (NEGATIVE); NITRITE, URINE NEGATIVE (NEGATIVE); UGLUCOSE NEGATIVE (NEGATIVE)
[2023-04-21 15:24] LABS: BASOPHILS # (AUTO) 0.2 K/UL (0.0-0.2); BASOPHILS % (AUTO) 3.4 % (0.0-2.0); EOSINOPHILS # (AUTO) 0.4 K/uL (0.0-0.7); EOSINOPHILS % (AUTO) 6.7 % (0.0-7.0); HEMATOCRIT 33.6 % (36.7-47.1); MEAN CORPUSCULAR HEMOGLOBIN 28.3 uug (23.8-33.4); MEAN CORPUSCULAR HGB CONC 33 g/dL (32.5-36.3); MEAN CORPUSCULAR VOLUME 86.8 fL (73.0-96.2); MONOCYTES # (AUTO) 0.6 K/uL (0.1-1.30); MONOCYTES % (AUTO) 10.7 % (0.0-11.0); NEUTROPHILS # (AUTO) 3.6 K/uL (1.8-8.9); NEUTROPHILS % (AUTO) 62.2 % (38.5-71.5); PLATELET COUNT (AUTO) 176 K/uL (152-348); RED BLOOD CELL COUNT(AUTO) 3.87 MIL/uL (4.06-5.63); RED CELL DISTRIBUTION WIDTH 15.6 % (12.1-16.2); WHITE BLOOD COUNT (AUTO) 5.7 K/uL (3.6-10.2)
[2023-04-21 15:36] LABS: ALBUMIN 3.1 g/dL (3.4-5.0); BILIRUBIN,DIRECT 0.1 mg/dL (0.0-0.2); BILIRUBIN,TOTAL 0.2 mg/dL (0.2-1.0); CALCIUM 9.2 mg/dL (8.5-10.1); CREATININE 1.2 mg/dL (0.6-1.3); POTASSIUM 4.1 mmol/L (3.5-5.1)
[2023-04-21 15:38] LABS: DIFFERENTIAL COMMENT 1
[2023-04-21 20:02] VITALS: BP 118/66; TEMP 98.5; O2SAT 99
== END 2023-04-21 19:30 | disposition home or self-care (01) ==
LOC: ER 13:15
DX: Z04.3 Encounter for examination and observation following other accident (principal); R51.9 Headache, unspecified; R07.89 Other chest pain; M54.2 Cervicalgia; E78.5 Hyperlipidemia, unspecified; Z79.899 Other long term (current) drug therapy; W06.XXXA Fall from bed, initial encounter; Y93.89 Activity, other specified; Y92.89 Other specified places as the place of occurrence of the external cause; Y99.8 Other external cause status
CPT/HCPCS: 36415; 70450; 71045; 72125; 85025; 93005; A4663

== ENCOUNTER 2023-07-11 18:01 | Inpatient (IN) | payer MEDICARE, OTHER ==
[~2023-07-11] VITALS: Ht 160 cm; Wt 68.5 kg
[2023-07-11 18:17] LABS: BASOPHILS % (AUTO) 0.4 % (0.0-2.0); EOSINOPHILS # (AUTO) 0.2 K/uL (0.0-0.7); EOSINOPHILS % (AUTO) 2.9 % (0.0-7.0); HEMATOCRIT 35.6 % (36.7-47.1); HEMOGLOBIN 11.6 g/dL (12.5-16.3); LYMPHOCYTES # (AUTO) 0.8 K/uL (0.8-4.8); LYMPHOCYTES % (AUTO) 13.5 % (20.5-51.5); MEAN CORPUSCULAR HEMOGLOBIN 28.6 uug (23.8-33.4); MEAN CORPUSCULAR HGB CONC 33 g/dL (32.5-36.3); MEAN CORPUSCULAR VOLUME 87.7 fL (73.0-96.2); MONOCYTES # (AUTO) 0.7 K/uL (0.1-1.30); MONOCYTES % (AUTO) 11.5 % (0.0-11.0); NEUTROPHILS # (AUTO) 4.2 K/uL (1.8-8.9); NEUTROPHILS % (AUTO) 71.7 % (38.5-71.5); PLATELET COUNT (AUTO) 202 K/uL (152-348); RED BLOOD CELL COUNT(AUTO) 4.06 MIL/uL (4.06-5.63); RED CELL DISTRIBUTION WIDTH 15.1 % (12.1-16.2); WHITE BLOOD COUNT (AUTO) 5.8 K/uL (3.6-10.2)
[2023-07-11 18:18] LABS: DIFFERENTIAL COMMENT 1
[2023-07-11 18:31] LABS: ACETAMINOPHEN < 2.0 ug/mL (10-30); ALANINE AMINOTRANSFERASE 21 U/L (16-63); ALBUMIN 3.1 g/dL (3.4-5.0); ALKALINE PHOSPHATASE 128 U/L (50-136); ASPARTATE AMINOTRANSFERASE < 5 U/L (15-37); BILIRUBIN,DIRECT 0.1 mg/dL (0.0-0.2); BILIRUBIN,TOTAL 0.4 mg/dL (0.2-1.0); CALCIUM 9.4 mg/dL (8.5-10.1); CARBON DIOXIDE 28 mmol/L (21-32); CHLORIDE 105 mmol/L (98-107); CREATININE 1.3 mg/dL (0.6-1.3); GLUCOSE 147 mg/dL (74-106); POTASSIUM 4.5 mmol/L (3.5-5.1); SODIUM SERUM 140 mmol/L (136-145); TOTAL PROTEIN, SERUM 7.3 g/dL (6.4-8.2); UREA NITROGEN, BLOOD 34 mg/dL (7-18)
[2023-07-11 18:39] LABS: ETHANOL < 3 MG/DL (0-10)
[2023-07-11] MEDS ORDERED: ACETAMINOPHEN ES 500 MG TABLET ONE (21:10)
[2023-07-11] MEDS ORDERED: ACETAMINOPHEN ES 500 MG TABLET PO ONE (21:15)
[2023-07-11] MEDS ORDERED: ACET-3117 PO (21:30)
[2023-07-11] MEDS ORDERED: NA P133E RC (21:30)
[2023-07-11] MEDS ORDERED: DIVA500T4 PO (21:30)
[2023-07-11] MEDS ORDERED: MAG355OR18 PO (21:30)
[2023-07-11] MEDS ORDERED: ASPI81TA31 PO (21:30)
[2023-07-11] MEDS ORDERED: MAGN400O6 PO (21:30)
[2023-07-11] MEDS ORDERED: METF-440 PO (21:30)
[2023-07-11] MEDS ORDERED: POLY15DR31 OP (21:30)
[2023-07-11] MEDS ORDERED: AMLO10TA4 PO (21:30)
[2023-07-11] MEDS ORDERED: ATOR10TA PO (21:30)
[2023-07-11] MEDS ORDERED: LORAZEPAM 0.5 MG TABLET PO PRN (22:00)
[2023-07-11] MEDS ORDERED: MAG HYDROX/AL HYDROX/SIMETH 30 ML LIQUID UDC PO PRN (22:00)
[2023-07-11] MEDS ORDERED: BLOOD SUGAR DIAGNOSTIC 1 EACH STRIP VI ONE (22:00)
[2023-07-11] MEDS ORDERED: MAGNESIUM HYDROXIDE 30 ML LIQUID UDC PO PRN (22:00)
[2023-07-11 22:20] VITALS: BP 114/74; TEMP 98.2; O2SAT 98
[2023-07-12] MEDS: TEMAZEPAM 7.5 MG CAPSULE PO PRN (00:41)
[2023-07-12] MEDS: BLOOD SUGAR DIAGNOSTIC 1 EACH STRIP VI SCH ×4 (07:30→20:27)
[2023-07-12] MEDS ORDERED: DEXTROSE 50% 50 ML DISP.SYRIN IV PRN (07:30)
[2023-07-12] MEDS ORDERED: FLEET ENEMA 133 ML BOTTLE RC PRN (07:30)
[2023-07-12 07:47] VITALS: BP 125/65; TEMP 98; O2SAT 98
[2023-07-12] MEDS: METFORMIN HCL 500 MG TABLET PO SCH ×2 (08:53→17:11)
[2023-07-12] MEDS: ASPIRIN 81 MG TAB.CHEW PO SCH (08:53)
[2023-07-12] MEDS: AMLODIPINE 10 MG TABLET PO SCH (08:53)
[2023-07-12] MEDS: POLYVINYL ALCOHOL OPHT DROPS 15 ML BOTTLE EACHEYE SCH ×3 (08:54→17:10)
[2023-07-12 10:14] LABS: THYROID STIMULATING HORMONE 1.169 mIU/mL (0.358-3.740)
[2023-07-12] MEDS: DIVALPROEX SPRINKLE 125 MG CAP.SPRINK PO SCH ×2 (12:22→20:17)
[2023-07-12] MEDS: NEOMY/BACITRAC/POLYMI OINT 28.35 GM TUBE TOP SCH (12:23)
[2023-07-12 15:28] VITALS: BP 111/68; TEMP 98; O2SAT 99
[2023-07-12 20:00] VITALS: BP 132/73; TEMP 98; O2SAT 96
[2023-07-12] MEDS: TAMSULOSIN HCL 0.4 MG CAP.SR.24H PO SCH (20:16)
[2023-07-12] MEDS: OLANZAPINE 2.5 MG TABLET PO SCH (20:16)
[2023-07-12] MEDS: ATORVASTATIN 10 MG TABLET PO SCH (20:16)
[2023-07-12] MEDS: INSULIN REGULAR, HUMAN 300 UNIT/3 ML VIAL SQ PRN (20:28)
[2023-07-13] MEDS: BLOOD SUGAR DIAGNOSTIC 1 EACH STRIP VI SCH ×4 (06:27→20:50)
[2023-07-13 08:00] VITALS: BP 114/67; TEMP 97.8; O2SAT 96
[2023-07-13] MEDS: ASPIRIN 81 MG TAB.CHEW PO SCH (08:29)
[2023-07-13] MEDS: AMLODIPINE 10 MG TABLET PO SCH (08:29)
[2023-07-13] MEDS: METFORMIN HCL 500 MG TABLET PO SCH ×2 (08:29→17:11)
[2023-07-13] MEDS: DIVALPROEX SPRINKLE 125 MG CAP.SPRINK PO SCH ×2 (08:29→20:49)
[2023-07-13] MEDS: NEOMY/BACITRAC/POLYMI OINT 28.35 GM TUBE TOP SCH (08:29)
[2023-07-13] MEDS: POLYVINYL ALCOHOL OPHT DROPS 15 ML BOTTLE EACHEYE SCH ×3 (08:30→16:20)
[2023-07-13] MEDS: INSULIN REGULAR, HUMAN 300 UNIT/3 ML VIAL SQ PRN ×2 (11:40→20:52)
[2023-07-13 16:03] VITALS: BP 112/68; TEMP 97.6; O2SAT 97
[2023-07-13 20:00] VITALS: BP 112/64; TEMP 97.7; O2SAT 96
[2023-07-13] MEDS: OLANZAPINE 2.5 MG TABLET PO SCH (20:49)
[2023-07-13] MEDS: ATORVASTATIN 10 MG TABLET PO SCH (20:49)
[2023-07-13] MEDS: TAMSULOSIN HCL 0.4 MG CAP.SR.24H PO SCH (20:49)
[2023-07-13] MEDS: REMEDY ESSENTIAL ZINC PASTE 113 GM TOP SCH (21:47)
[2023-07-14] MEDS: BLOOD SUGAR DIAGNOSTIC 1 EACH STRIP VI SCH ×4 (06:19→21:13)
[2023-07-14 08:06] VITALS: BP 100/52; TEMP 98.4; O2SAT 96
[2023-07-14] MEDS: AMLODIPINE 10 MG TABLET PO SCH (09:00)
[2023-07-14] MEDS: DIVALPROEX SPRINKLE 125 MG CAP.SPRINK PO SCH ×2 (09:03→21:12)
[2023-07-14] MEDS: ASPIRIN 81 MG TAB.CHEW PO SCH (09:03)
[2023-07-14] MEDS: NEOMY/BACITRAC/POLYMI OINT 28.35 GM TUBE TOP SCH (09:04)
[2023-07-14] MEDS: POLYVINYL ALCOHOL OPHT DROPS 15 ML BOTTLE EACHEYE SCH ×3 (09:04→17:26)
[2023-07-14] MEDS: METFORMIN HCL 500 MG TABLET PO SCH ×3 (09:13→17:30)
[2023-07-14] MEDS: REMEDY ESSENTIAL ZINC PASTE 113 GM TOP SCH ×2 (09:22→21:14)
[2023-07-14 16:25] VITALS: BP 95/51; TEMP 98.4; O2SAT 95
[2023-07-14 20:00] VITALS: BP 110/72; TEMP 98.7; O2SAT 94
[2023-07-14] MEDS: ATORVASTATIN 10 MG TABLET PO SCH (21:11)
[2023-07-14] MEDS: OLANZAPINE 2.5 MG TABLET PO SCH (21:12)
[2023-07-14] MEDS: TAMSULOSIN HCL 0.4 MG CAP.SR.24H PO SCH (21:12)
[2023-07-15] MEDS: BLOOD SUGAR DIAGNOSTIC 1 EACH STRIP VI SCH ×4 (07:37→20:34)
[2023-07-15 08:15] VITALS: BP 141/76; TEMP 97.8; O2SAT 99
[2023-07-15] MEDS: METFORMIN HCL 500 MG TABLET PO SCH ×2 (08:18→17:52)
[2023-07-15] MEDS: DIVALPROEX SPRINKLE 125 MG CAP.SPRINK PO SCH ×2 (08:18→20:33)
[2023-07-15] MEDS: ASPIRIN 81 MG TAB.CHEW PO SCH (08:19)
[2023-07-15] MEDS: POLYVINYL ALCOHOL OPHT DROPS 15 ML BOTTLE EACHEYE SCH ×3 (08:20→17:52)
[2023-07-15] MEDS: REMEDY ESSENTIAL ZINC PASTE 113 GM TOP SCH ×2 (08:21→20:33)
[2023-07-15] MEDS: NEOMY/BACITRAC/POLYMI OINT 28.35 GM TUBE TOP SCH (08:22)
[2023-07-15] MEDS: AMLODIPINE 10 MG TABLET PO SCH (08:23)
[2023-07-15] MEDS: INSULIN REGULAR, HUMAN 300 UNIT/3 ML VIAL SQ PRN ×2 (11:22→20:43)
[2023-07-15 16:18] VITALS: BP 109/70; TEMP 98; O2SAT 97
[2023-07-15] MEDS: ATORVASTATIN 10 MG TABLET PO SCH (20:33)
[2023-07-15] MEDS: TAMSULOSIN HCL 0.4 MG CAP.SR.24H PO SCH (20:33)
[2023-07-15] MEDS: OLANZAPINE 2.5 MG TABLET PO SCH (20:33)
[2023-07-15 20:44] VITALS: BP 107/61; TEMP 97.9; O2SAT 95
[2023-07-15] MEDS: ACETAMINOPHEN 325 MG TABLET PO PRN (21:09)
[2023-07-16] MEDS: BLOOD SUGAR DIAGNOSTIC 1 EACH STRIP VI SCH ×4 (06:56→20:18)
[2023-07-16] MEDS: ASPIRIN 81 MG TAB.CHEW PO SCH (08:45)
[2023-07-16] MEDS: DIVALPROEX SPRINKLE 125 MG CAP.SPRINK PO SCH ×2 (08:45→20:19)
[2023-07-16] MEDS: AMLODIPINE 10 MG TABLET PO SCH (08:45)
[2023-07-16] MEDS: METFORMIN HCL 500 MG TABLET PO SCH ×2 (08:45→17:13)
[2023-07-16] MEDS: POLYVINYL ALCOHOL OPHT DROPS 15 ML BOTTLE EACHEYE SCH ×3 (08:47→17:13)
[2023-07-16] MEDS: REMEDY ESSENTIAL ZINC PASTE 113 GM TOP SCH ×2 (08:48→20:18)
[2023-07-16] MEDS: NEOMY/BACITRAC/POLYMI OINT 28.35 GM TUBE TOP SCH (08:48)
[2023-07-16 08:57] VITALS: BP 135/85; TEMP 98.2; O2SAT 98
[2023-07-16 16:29] VITALS: BP 92/56; TEMP 98; O2SAT 98
[2023-07-16] MEDS: TAMSULOSIN HCL 0.4 MG CAP.SR.24H PO SCH (20:19)
[2023-07-16] MEDS: OLANZAPINE 2.5 MG TABLET PO SCH (20:19)
[2023-07-16] MEDS: ATORVASTATIN 10 MG TABLET PO SCH (20:19)
[2023-07-16] MEDS: INSULIN REGULAR, HUMAN 300 UNIT/3 ML VIAL SQ PRN (20:25)
[2023-07-16 20:36] VITALS: BP 114/52; TEMP 98.2; O2SAT 98
[2023-07-17] MEDS: BLOOD SUGAR DIAGNOSTIC 1 EACH STRIP VI SCH ×4 (06:10→20:27)
[2023-07-17 08:45] VITALS: BP 123/77; TEMP 98.1; O2SAT 97
[2023-07-17] MEDS: DIVALPROEX SPRINKLE 125 MG CAP.SPRINK PO SCH ×2 (08:54→20:29)
[2023-07-17] MEDS: ASPIRIN 81 MG TAB.CHEW PO SCH (08:54)
[2023-07-17] MEDS: AMLODIPINE 10 MG TABLET PO SCH (08:54)
[2023-07-17] MEDS: METFORMIN HCL 500 MG TABLET PO SCH ×2 (08:54→17:18)
[2023-07-17] MEDS: REMEDY ESSENTIAL ZINC PASTE 113 GM TOP SCH ×2 (08:55→20:27)
[2023-07-17] MEDS: NEOMY/BACITRAC/POLYMI OINT 28.35 GM TUBE TOP SCH (08:56)
[2023-07-17] MEDS: POLYVINYL ALCOHOL OPHT DROPS 15 ML BOTTLE EACHEYE SCH ×3 (08:56→17:18)
[2023-07-17 16:13] VITALS: BP 123/71; TEMP 98; O2SAT 98
[2023-07-17 20:00] VITALS: BP 125/75; TEMP 97.9; O2SAT 99
[2023-07-17] MEDS: TAMSULOSIN HCL 0.4 MG CAP.SR.24H PO SCH (20:30)
[2023-07-17] MEDS: OLANZAPINE 2.5 MG TABLET PO SCH (20:30)
[2023-07-17] MEDS: ATORVASTATIN 10 MG TABLET PO SCH (20:30)
[2023-07-17] MEDS: INSULIN REGULAR, HUMAN 300 UNIT/3 ML VIAL SQ PRN (20:30)
[2023-07-17] MEDS: TEMAZEPAM 7.5 MG CAPSULE PO PRN (22:40)
[2023-07-18] MEDS: BLOOD SUGAR DIAGNOSTIC 1 EACH STRIP VI SCH ×4 (06:20→20:28)
[2023-07-18 07:30] VITALS: BP 129/45; TEMP 98.2; O2SAT 96
[2023-07-18] MEDS: METFORMIN HCL 500 MG TABLET PO SCH ×2 (08:21→17:18)
[2023-07-18] MEDS: DIVALPROEX SPRINKLE 125 MG CAP.SPRINK PO SCH ×2 (08:22→20:27)
[2023-07-18] MEDS: ASPIRIN 81 MG TAB.CHEW PO SCH (08:22)
[2023-07-18] MEDS: AMLODIPINE 10 MG TABLET PO SCH (08:22)
[2023-07-18] MEDS: POLYVINYL ALCOHOL OPHT DROPS 15 ML BOTTLE EACHEYE SCH ×3 (08:22→17:38)
[2023-07-18] MEDS: REMEDY ESSENTIAL ZINC PASTE 113 GM TOP SCH ×2 (08:23→20:28)
[2023-07-18] MEDS: NEOMY/BACITRAC/POLYMI OINT 28.35 GM TUBE TOP SCH (08:23)
[2023-07-18] MEDS: ACETAMINOPHEN 325 MG TABLET PO PRN ×2 (12:10→21:23)
[2023-07-18 15:37] VITALS: BP 131/52; TEMP 98; O2SAT 99
[2023-07-18] MEDS: INSULIN REGULAR, HUMAN 300 UNIT/3 ML VIAL SQ PRN (17:37)
[2023-07-18 20:00] VITALS: BP 106/57; TEMP 97.9; O2SAT 99
[2023-07-18] MEDS: OLANZAPINE 2.5 MG TABLET PO SCH (20:27)
[2023-07-18] MEDS: ATORVASTATIN 10 MG TABLET PO SCH (20:27)
[2023-07-18] MEDS: TAMSULOSIN HCL 0.4 MG CAP.SR.24H PO SCH (20:27)
[2023-07-18] MEDS: TEMAZEPAM 7.5 MG CAPSULE PO PRN ×2 (21:23→22:39)
[2023-07-19] MEDS: BLOOD SUGAR DIAGNOSTIC 1 EACH STRIP VI SCH ×4 (07:30→20:13)
[2023-07-19 07:54] LABS: BASOPHILS % (AUTO) 0.7 % (0.0-2.0); EOSINOPHILS # (AUTO) 0.3 K/uL (0.0-0.7); HEMATOCRIT 35.2 % (36.7-47.1); HEMOGLOBIN 11.7 g/dL (12.5-16.3); LYMPHOCYTES # (AUTO) 1.1 K/uL (0.8-4.8); LYMPHOCYTES % (AUTO) 17.6 % (20.5-51.5); MEAN CORPUSCULAR HEMOGLOBIN 28.9 uug (23.8-33.4); MEAN CORPUSCULAR HGB CONC 33 g/dL (32.5-36.3); MEAN CORPUSCULAR VOLUME 87.3 fL (73.0-96.2); MONOCYTES # (AUTO) 0.9 K/uL (0.1-1.30); MONOCYTES % (AUTO) 13.8 % (0.0-11.0); NEUTROPHILS % (AUTO) 62.9 % (38.5-71.5); PLATELET COUNT (AUTO) 192 K/uL (152-348); RED BLOOD CELL COUNT(AUTO) 4.04 MIL/uL (4.06-5.63); RED CELL DISTRIBUTION WIDTH 14.8 % (12.1-16.2); WHITE BLOOD COUNT (AUTO) 6.3 K/uL (3.6-10.2)
[2023-07-19 08:08] LABS: ALANINE AMINOTRANSFERASE 25 U/L (16-63); ALKALINE PHOSPHATASE 111 U/L (50-136); ASPARTATE AMINOTRANSFERASE 7 U/L (15-37); BILIRUBIN,TOTAL 0.3 mg/dL (0.2-1.0); CALCIUM 9.1 mg/dL (8.5-10.1); CARBON DIOXIDE 31 mmol/L (21-32); CHLORIDE 106 mmol/L (98-107); CREATININE 1.4 mg/dL (0.6-1.3); GLUCOSE 90 mg/dL (74-106); SODIUM SERUM 142 mmol/L (136-145); TOTAL PROTEIN, SERUM 6.7 g/dL (6.4-8.2); UREA NITROGEN, BLOOD 46 mg/dL (7-18); VALPROIC ACID 41 ug/mL (50-100)
[2023-07-19 08:19] VITALS: BP 106/62; TEMP 98; O2SAT 98
[2023-07-19 08:30] LABS: DIFFERENTIAL COMMENT N
[2023-07-19] MEDS: AMLODIPINE 10 MG TABLET PO SCH (09:00)
[2023-07-19] MEDS: ASPIRIN 81 MG TAB.CHEW PO SCH (09:10)
[2023-07-19] MEDS: METFORMIN HCL 500 MG TABLET PO SCH ×2 (09:10→17:29)
[2023-07-19] MEDS: DIVALPROEX SPRINKLE 125 MG CAP.SPRINK PO SCH ×2 (09:10→20:12)
[2023-07-19] MEDS: NEOMY/BACITRAC/POLYMI OINT 28.35 GM TUBE TOP SCH (09:11)
[2023-07-19] MEDS: POLYVINYL ALCOHOL OPHT DROPS 15 ML BOTTLE EACHEYE SCH ×3 (09:11→17:29)
[2023-07-19] MEDS: REMEDY ESSENTIAL ZINC PASTE 113 GM TOP SCH ×2 (09:12→20:12)
[2023-07-19 15:49] VITALS: BP 102/57; TEMP 98; O2SAT 99
[2023-07-19 20:08] VITALS: BP 110/60; TEMP 98.1; O2SAT 98
[2023-07-19] MEDS: TAMSULOSIN HCL 0.4 MG CAP.SR.24H PO SCH (20:12)
[2023-07-19] MEDS: OLANZAPINE 2.5 MG TABLET PO SCH (20:12)
[2023-07-19] MEDS: ATORVASTATIN 10 MG TABLET PO SCH (20:12)
[2023-07-20] MEDS: BLOOD SUGAR DIAGNOSTIC 1 EACH STRIP VI SCH ×4 (07:19→20:49)
[2023-07-20 07:51] LABS: BASOPHILS % (AUTO) 0.3 % (0.0-2.0); EOSINOPHILS # (AUTO) 0.3 K/uL (0.0-0.7); EOSINOPHILS % (AUTO) 4.8 % (0.0-7.0); HEMATOCRIT 34.3 % (36.7-47.1); HEMOGLOBIN 11.6 g/dL (12.5-16.3); LYMPHOCYTES # (AUTO) 0.9 K/uL (0.8-4.8); LYMPHOCYTES % (AUTO) 15.2 % (20.5-51.5); MEAN CORPUSCULAR HEMOGLOBIN 29.4 uug (23.8-33.4); MEAN CORPUSCULAR HGB CONC 34 g/dL (32.5-36.3); MEAN CORPUSCULAR VOLUME 86.9 fL (73.0-96.2); MONOCYTES # (AUTO) 0.9 K/uL (0.1-1.30); MONOCYTES % (AUTO) 15.4 % (0.0-11.0); NEUTROPHILS # (AUTO) 3.9 K/uL (1.8-8.9); NEUTROPHILS % (AUTO) 64.3 % (38.5-71.5); PLATELET COUNT (AUTO) 176 K/uL (152-348); RED BLOOD CELL COUNT(AUTO) 3.95 MIL/uL (4.06-5.63); RED CELL DISTRIBUTION WIDTH 14.9 % (12.1-16.2); WHITE BLOOD COUNT (AUTO) 6.1 K/uL (3.6-10.2)
[2023-07-20 07:58] LABS: DIFFERENTIAL COMMENT 1
[2023-07-20 08:10] LABS: ALANINE AMINOTRANSFERASE 16 U/L (16-63); ALBUMIN 2.8 g/dL (3.4-5.0); ALKALINE PHOSPHATASE 108 U/L (50-136); ASPARTATE AMINOTRANSFERASE 12 U/L (15-37); BILIRUBIN,TOTAL 0.3 mg/dL (0.2-1.0); CALCIUM 9.1 mg/dL (8.5-10.1); CARBON DIOXIDE 24 mmol/L (21-32); CHLORIDE 105 mmol/L (98-107); CREATINE KINASE, TOTAL 57 U/L (39-308); CREATININE 1.1 mg/dL (0.6-1.3); GLUCOSE 81 mg/dL (74-106); POTASSIUM 3.9 mmol/L (3.5-5.1); SODIUM SERUM 140 mmol/L (136-145); TOTAL PROTEIN, SERUM 6.4 g/dL (6.4-8.2); UREA NITROGEN, BLOOD 41 mg/dL (7-18)
[2023-07-20 08:11] VITALS: BP 121/77; TEMP 97.2; O2SAT 97
[2023-07-20] MEDS: METFORMIN HCL 500 MG TABLET PO SCH ×2 (08:52→17:33)
[2023-07-20] MEDS: ASPIRIN 81 MG TAB.CHEW PO SCH (08:52)
[2023-07-20] MEDS: DIVALPROEX SPRINKLE 125 MG CAP.SPRINK PO SCH ×3 (08:52→20:53)
[2023-07-20] MEDS: POLYVINYL ALCOHOL OPHT DROPS 15 ML BOTTLE EACHEYE SCH ×3 (08:54→17:33)
[2023-07-20] MEDS: NEOMY/BACITRAC/POLYMI OINT 28.35 GM TUBE TOP SCH (08:54)
[2023-07-20] MEDS: AMLODIPINE 10 MG TABLET PO SCH (08:54)
[2023-07-20] MEDS: REMEDY ESSENTIAL ZINC PASTE 113 GM TOP SCH ×2 (08:55→20:54)
[2023-07-20 12:15] LABS: LYMPHOCYTES % (MANUAL) 18 % (20-40); NEUTROPHILS % (MANUAL) 63 % (42-75)
[2023-07-20 12:16] LABS: EOSINOPHILS % (MANUAL) 3 % (0-8); MONOCYTES % (MANUAL) 16 % (2-10)
[2023-07-20 16:00] VITALS: BP 123/72; TEMP 97.8; O2SAT 97
[2023-07-20 20:00] VITALS: BP 106/67; TEMP 97.6; O2SAT 99
[2023-07-20] MEDS: OLANZAPINE 2.5 MG TABLET PO SCH (20:53)
[2023-07-20] MEDS: TAMSULOSIN HCL 0.4 MG CAP.SR.24H PO SCH (20:53)
[2023-07-20] MEDS: ATORVASTATIN 10 MG TABLET PO SCH (20:53)
[2023-07-21] MEDS: BLOOD SUGAR DIAGNOSTIC 1 EACH STRIP VI SCH ×4 (06:10→21:00)
[2023-07-21 07:06] LABS: PTH, INTACT 18 pg/mL (15-65)
[2023-07-21 08:01] VITALS: BP 116/64; TEMP 98; O2SAT 98
[2023-07-21] MEDS: METFORMIN HCL 500 MG TABLET PO SCH ×2 (08:33→17:34)
[2023-07-21] MEDS: ASPIRIN 81 MG TAB.CHEW PO SCH (08:33)
[2023-07-21] MEDS: AMLODIPINE 10 MG TABLET PO SCH (08:33)
[2023-07-21] MEDS: NEOMY/BACITRAC/POLYMI OINT 28.35 GM TUBE TOP SCH (08:34)
[2023-07-21] MEDS: DIVALPROEX SPRINKLE 125 MG CAP.SPRINK PO SCH ×3 (08:34→22:00)
[2023-07-21] MEDS: POLYVINYL ALCOHOL OPHT DROPS 15 ML BOTTLE EACHEYE SCH ×3 (08:34→17:35)
[2023-07-21] MEDS: REMEDY ESSENTIAL ZINC PASTE 113 GM TOP SCH ×2 (08:35→22:01)
[2023-07-21] MEDS: ACETAMINOPHEN 325 MG TABLET PO PRN (08:40)
[2023-07-21 09:07] LABS: A/G RATIO 0.9 (0.7-1.7); ALBUMIN 2.9 g/dL (2.9-4.4); ALPHA-1-GLOBULIN 0.2 g/dL (0.0-0.4); ALPHA-2-GLOBULIN 0.8 g/dL (0.4-1.0); BETA GLOBULIN 0.9 g/dL (0.7-1.3); GAMMA GLOBULIN 1.4 g/dL (0.4-1.8); GLOBULIN, TOTAL 3.3 g/dL (2.2-3.9); M-SPIKE Not Observed g/dL (Not Observed)
[2023-07-21 15:19] VITALS: BP 93/47; TEMP 98.2; O2SAT 98
[2023-07-21 20:04] VITALS: BP 111/66; TEMP 98.2; O2SAT 98
[2023-07-21] MEDS: ATORVASTATIN 10 MG TABLET PO SCH (22:00)
[2023-07-21] MEDS: TAMSULOSIN HCL 0.4 MG CAP.SR.24H PO SCH (22:00)
[2023-07-21] MEDS: OLANZAPINE 2.5 MG TABLET PO SCH (22:00)
[2023-07-22] MEDS: BLOOD SUGAR DIAGNOSTIC 1 EACH STRIP VI SCH ×4 (07:35→20:43)
[2023-07-22 08:00] VITALS: BP 108/43; TEMP 97.2; O2SAT 97
[2023-07-22] MEDS: ASPIRIN 81 MG TAB.CHEW PO SCH (08:35)
[2023-07-22] MEDS: DIVALPROEX SPRINKLE 125 MG CAP.SPRINK PO SCH ×3 (08:36→20:57)
[2023-07-22] MEDS: METFORMIN HCL 500 MG TABLET PO SCH ×2 (08:36→17:31)
[2023-07-22] MEDS: NEOMY/BACITRAC/POLYMI OINT 28.35 GM TUBE TOP SCH (08:37)
[2023-07-22] MEDS: POLYVINYL ALCOHOL OPHT DROPS 15 ML BOTTLE EACHEYE SCH ×3 (08:37→17:31)
[2023-07-22] MEDS: AMLODIPINE 10 MG TABLET PO SCH (08:37)
[2023-07-22] MEDS: REMEDY ESSENTIAL ZINC PASTE 113 GM TOP SCH ×2 (08:38→20:59)
[2023-07-22 16:00] VITALS: BP 96/45; TEMP 97.6; O2SAT 97
[2023-07-22 20:13] VITALS: BP 101/48; TEMP 97.8; O2SAT 96
[2023-07-22] MEDS: OLANZAPINE 2.5 MG TABLET PO SCH (20:56)
[2023-07-22] MEDS: ATORVASTATIN 10 MG TABLET PO SCH (20:56)
[2023-07-22] MEDS: TAMSULOSIN HCL 0.4 MG CAP.SR.24H PO SCH (20:58)
[2023-07-23] MEDS: BLOOD SUGAR DIAGNOSTIC 1 EACH STRIP VI SCH ×4 (06:30→20:14)
[2023-07-23 07:45] VITALS: BP 146/77; TEMP 98; O2SAT 98
[2023-07-23] MEDS: AMLODIPINE 10 MG TABLET PO SCH (08:54)
[2023-07-23] MEDS: METFORMIN HCL 500 MG TABLET PO SCH ×2 (08:54→17:14)
[2023-07-23] MEDS: ASPIRIN 81 MG TAB.CHEW PO SCH (08:54)
[2023-07-23] MEDS: DIVALPROEX SPRINKLE 125 MG CAP.SPRINK PO SCH ×3 (08:55→20:13)
[2023-07-23] MEDS: POLYVINYL ALCOHOL OPHT DROPS 15 ML BOTTLE EACHEYE SCH ×3 (08:56→17:13)
[2023-07-23] MEDS: REMEDY ESSENTIAL ZINC PASTE 113 GM TOP SCH ×2 (09:00→20:13)
[2023-07-23] MEDS: NEOMY/BACITRAC/POLYMI OINT 28.35 GM TUBE TOP SCH (09:01)
[2023-07-23] MEDS: ACETAMINOPHEN 325 MG TABLET PO PRN (09:22)
[2023-07-23 16:51] VITALS: BP 111/61; TEMP 98.1; O2SAT 97
[2023-07-23] MEDS: ATORVASTATIN 10 MG TABLET PO SCH (20:13)
[2023-07-23] MEDS: OLANZAPINE 2.5 MG TABLET PO SCH (20:13)
[2023-07-23] MEDS: TAMSULOSIN HCL 0.4 MG CAP.SR.24H PO SCH (20:13)
[2023-07-23 20:19] VITALS: BP 104/54; TEMP 98.2; O2SAT 98
[2023-07-24] MEDS: BLOOD SUGAR DIAGNOSTIC 1 EACH STRIP VI SCH (06:41)
[2023-07-24 07:58] VITALS: BP 102/61; TEMP 98.1; O2SAT 98
[2023-07-24 08:53] VITALS: BP 102/61
[2023-07-24] MEDS: METFORMIN HCL 500 MG TABLET PO SCH (08:53)
[2023-07-24] MEDS: ASPIRIN 81 MG TAB.CHEW PO SCH (08:53)
[2023-07-24] MEDS: AMLODIPINE 10 MG TABLET PO SCH (08:53)
[2023-07-24] MEDS: NEOMY/BACITRAC/POLYMI OINT 28.35 GM TUBE TOP SCH (08:54)
[2023-07-24] MEDS: DIVALPROEX SPRINKLE 125 MG CAP.SPRINK PO SCH (08:54)
[2023-07-24] MEDS: REMEDY ESSENTIAL ZINC PASTE 113 GM TOP SCH (08:59)
[2023-07-24] MEDS: POLYVINYL ALCOHOL OPHT DROPS 15 ML BOTTLE EACHEYE SCH (08:59)
== END 2023-07-24 11:54 | DRG 885 ==
LOC: ER 18:09 → GPS 21:53
PROVIDERS: ADMIT Psychiatry & Neurology Psychosomatic Medicine; ATTEND Nurse Practitioner Acute Care
DX: F31.9 Bipolar disorder, unspecified (principal); N18.9 Chronic kidney disease, unspecified; N17.9 Acute kidney failure, unspecified; I69.354 Hemiplegia and hemiparesis following cerebral infarction affecting left non-dominant side; F03.911 Unspecified dementia, unspecified severity, with agitation; E44.1 Mild protein-calorie malnutrition; S50.02XA Contusion of left elbow, initial encounter; W19.XXXA Unspecified fall, initial encounter; Y92.129 Unspecified place in nursing home as the place of occurrence of the external cause; D64.9 Anemia, unspecified; N40.0 Benign prostatic hyperplasia without lower urinary tract symptoms; Z66 Do not resuscitate; F25.9 Schizoaffective disorder, unspecified; Z95.0 Presence of cardiac pacemaker; E11.22 Type 2 diabetes mellitus with diabetic chronic kidney disease; I12.9 Hypertensive chronic kidney disease with stage 1 through stage 4 chronic kidney disease, or unspecified chronic kidney disease; Z79.84 Long term (current) use of oral hypoglycemic drugs; Z79.899 Other long term (current) drug therapy; E88.09 Other disorders of plasma-protein metabolism, not elsewhere classified; E78.5 Hyperlipidemia, unspecified
CPT/HCPCS: 36415; 70030-TC; 73070; 76770; 80164; 83550; 83735; 83970; 84100; 84155; 84165; 84443; 85025; A9150; G0480; J1815